=== PATIENT | male | born 1955 | race American Indian/Alaskan Native ===

== ENCOUNTER 2017-05-11 09:15 | Emergency (ER) | payer OTHER ==
[2017-05-11 09:28] VITALS: BP 165/97; PULSE 82; TEMP 98.2; BMI 30.6
--- NOTE | 2017-05-11 09:30 | PDOC ---
Attending Attestation - Resident Resident Name: Emilee Crystal - ED Attending Attestation I have performed the following: I have examined & evaluated the patient, The case was reviewed & discussed with the resident, I agree w/resident's findings & plan, Exceptions are as noted - HPI HPI: 61 yo M history DM, HTN, HL presents with 2 day history of headaches associated with micturition. He states that he only gets the headaches when he urinates. They are occipital, nonradiating, lasting about 30 minutes at a time. Denies weakness, numbness. No other associated symptoms. They are self-limited. No prior history of chronic headaches. - Physicial Exam PE: GENERAL: Awake, alert, and fully oriented, in no acute distress HEAD: No signs of trauma EYES: PERRLA, EOMI, sclera anicteric, conjunctiva clear ENT: Auricles normal inspection, hearing grossly normal, nares patent, oropharynx clear without exudates. Moist mucosa NECK: Normal ROM, supple, no lymphadenopathy, JVD, or masses LUNGS: Breath sounds equal, clear to auscultation bilaterally. No wheezes, and no crackles HEART: Regular rate and rhythm, normal S1 and S2, no murmurs, rubs or gallops ABDOMEN: Soft, nontender, normoactive bowel sounds. No guarding, no rebound. No masses EXTREMITIES: Normal range of motion, no edema. No clubbing or cyanosis. No cords, erythema, or tenderness NEUROLOGICAL: Cranial nerves II through XII grossly intact. Normal speech, normal gait. Motor and sensation intact. SKIN: Warm, Dry, normal turgor, no rashes or lesions noted. - Medical Decision Making CTH obtained, as patient does not typically get headaches. No acute findings. D/ w neuro, recommended outpatient f/u. No neuro deficits on exam.
--- NOTE | 2017-05-11 09:47 | PDOC ---
History of Present Illness - General Chief Complaint: Headache Stated Complaint: Migraine Headache Time Seen by Provider: 05/11/17 09:23 History Source: Patient - History of Present Illness Initial Comments: 05/12/17 22:17 Patient is a 61 y.o. male with a PMH of NIDDM, HTN and DLD who presents with 2 episodes of acute onset of headache immediately post micturition. Patients states the first headache occured yesterday and resolved within 2 hours with Aspirin and the second headache occured this morning prompting his visit to the ED. Patient denies any LOC, visual changes, weakness, seizures or other neurological symptoms. Patient further denies any h/o of prior migraines. Past History - Past Medical History Allergies/Adverse Reactions: Allergies Allergy/AdvReac Type Severity Reaction Status Date / Time No Known Allergies Allergy Verified 05/11/17 09:19 Home Medications: Ambulatory Orders Canagliflozin [Invokana] 100 mg PO DAILY 05/11/17 Glipizide [Glipizide ER] 5 mg PO DAILY 05/11/17 Metformin HCl 500 mg PO TID 05/11/17 COPD: No - Suicide/Smoking/Psychosocial Hx Smoking History: Never smoked Have you smoked in the past 12 months: No Information on smoking cessation initiated: No *Physical Exam - Vital Signs Last Vital Signs Temp Pulse Resp BP Pulse Ox 98.2 F 82 18 165/97 99 05/11/17 09:21 05/11/17 09:21 05/11/17 09:21 05/11/17 09:21 05/11/17 09:21 ED Treatment Course - LABORATORY CBC & Chemistry Diagram: 05/11/17 09:25 05/11/17 09:25 Medical Decision Making - Medical Decision Making 05/11/17 09:46 Patient is a 61 y.o. male who presents with micturition associated headaches. On PE patient is A&O x4 and symptoms have resolved by time of presentation to ED. Low clinical suspicion for SAH, however, Head CT ordered to evaluate any possible hemorrhage. 05/11/17 11:17 Case d/w Dr. Metcalf of neurology. Agrees with discharge if Head CT clear and outpatient neurology follow-up. CT Head negative. Patient given return precautions and discharged home. *DC/Admit/Observation/Transfer Diagnosis at time of Disposition: Migraine - Discharge Dispostion Disposition: HOME Condition at time of disposition: Good Admit: No - Referrals Referrals: STAFF,NOT ON [Primary Care Provider] - Ethan Metcalf MD [Staff Physician] - - Patient Instructions Additional Instructions: Please follow up with Dr. Metcalf, a neurologist, for evaluation of your headaches. Please return to the Emergency Department for any worsening or concerning symptoms including increased severity/frequency of headaches, chest pain, visual changes or confusion. - Post Discharge Activity
[2017-05-11 09:49] LABS: URINE APPEARANCE CLEAR; URINE BILIRUBIN NEGATIVE (NEGATIVE); URINE BLOOD NEGATIVE (NEGATIVE); URINE GLUCOSE (UA) 3+ (NEGATIVE); URINE KETONE NEGATIVE (NEGATIVE); URINE NITRITE NEGATIVE (NEGATIVE); URINE PROTEIN NEGATIVE (NEGATIVE); URINE UROBILINOGEN NEGATIVE mg/dL (0.2-1.0)
[2017-05-11 09:55] LABS: BASOPHIL 0.6 % (0-2.0); EOSINOPHIL 1.6 % (0-4.5); MCH 28.7 pg (25.7-33.7); MCHC 33.2 g/dl (32.0-35.9); MEAN CELL VOLUME 86.3 fl (80-96); MEAN PLT VOLUME 7.5 fl (7.5-11.1); NEUTROPHILS 62.5 % (42.8-82.8); PLATELET COUNT 203 K/MM3 (134-434); RDW 13.9 % (11.9-15.9); WHITE BLOOD COUNT 6.4 K/mm3 (4.0-10.0)
[2017-05-11 10:34] LABS: ALK PHOS 79 U/L (45-117); ANION GAP 6 (8-16); BILIRUBIN,TOTAL 0.5 mg/dL (0.2-1.0); CO2 28 mmol/L (21-32); CREATININE 1.1 mg/dL (0.7-1.3); GLUCOSE,RANDOM 244 mg/dL (74-106); SGOT/AST 17 U/L (15-37); SGPT/ALT 30 U/L (12-78); TOT PROT 7.8 g/dl (6.4-8.2)
[2017-05-11 10:35] LABS: TROPONIN I 0.03 ng/ml (0.00-0.05)
[2017-05-11 11:35] LABS: URINE COLOR YELLOW
[2017-05-11 17:30] LABS: URINE LEUK ESTERASE Negative (NEGATIVE)
--- NOTE | 2017-05-12 07:43 | EKG ---
Test Reason : Blood Pressure : / mmHG Vent. Rate : 077 BPM Atrial Rate : 077 BPM P-R Int : 150 ms QRS Dur : 084 ms QT Int : 366 ms P-R-T Axes : 053 025 044 degrees QTc Int : 414 ms NORMAL SINUS RHYTHM NORMAL ECG NO PREVIOUS ECGS AVAILABLE Confirmed by Naima Magdaleno ([id number]) on 05/11/2017 2:35:49 PM Also confirmed by MD Rasta, Naima ([id number]), web editor NAIMA PALOMO ([id number]) on 05/12/2017 7:43:14 AM Referred By: Confirmed By:Naima Magdaleno MD
== END 2017-05-11 11:56 | disposition home or self-care (01) ==
LOC: JER 09:15
DX: G43.909 Migraine, unspecified, not intractable, without status migrainosus (principal); E11.9 Type 2 diabetes mellitus without complications
CPT/HCPCS: 36415; 70450-TC; 80053; 81003; 82550; 84484; 85025; 93005; 93010; 99283-25